=== PATIENT | female | born 1995 | race Caucasian/White ===

== ENCOUNTER → 2018-07-23 13:49 | Day surgery (SDC) | payer OTHER ==
[~2018-07-23 13:49] MED LIST: Acetaminophen TAB* 325 MG PO PRN; Buffered Lidocaine 0.9% SYRIN* 5 ML/SYR SYRINGE INTRADERM ONE; Bupivacaine 0.25% SDV PF* 10 ML VIAL INJ ONE; Dexamethasone IV* 4 MG/ML 1 ML (4 MG) ONE; DiMENhydriNATE IV* 50 MG/ML VIAL IV PUSH PRN; Ketorolac INJ* 30 MG/ML 1 ML VIAL ONE; Lidocaine 1% INJ* 10 MG/ML 30 ML SDV ONE; Lidocaine 2% PF * 5 ML VIAL ONE; Metoclopramide IV* 5 MG/ML 2 ML VIAL ONE; Midazolam* 1 MG/ML 2 ML VIAL (2 MG) ONE; Naloxone* 0.4 MG/ML 1 ML VIAL IV PRN; Ondansetron INJ* 2 MG/ML VIAL ONE; Propofol* 10 MG/ML 20 ML BTL ONE; ceFAZolin 2 GM PREMIX in ORs 2 GM/50 ML BAG IVPB ONE; fentaNYL* 50 MCG/ML 2 ML VIAL (100 MCG VIAL) IV PRN; fentaNYL* 50 MCG/ML 2 ML VIAL (100 MCG VIAL) ONE; oxyCODONE/Acetamin 5/325 MG* TAB ONE; oxyCODONE/Acetamin 5/325 MG* TAB PO PRN
[2018-07-23 17:33] VITALS: BP 131/80
--- NOTE | 2018-07-24 11:04 | OP ---
DATE OF OPERATION: 07/23/18 - SDS DATE OF : [birth year] SURGEON: Benitez Loya MD. WORKERS COMPENSATION CLAIMS ADJUSTER: JENNIE Salvador. An medical clerical assistant was needed for the procedure to aid in positioning of the hand and reduction and instrumentation. ANESTHESIOLOGIST: Dr. Bates. ANESTHESIA: General. PRE-OP DIAGNOSIS: Left ring finger proximal phalanx displaced shaft fracture. POST-OP DIAGNOSIS: Left ring finger proximal phalanx displaced shaft fracture. OPERATIVE PROCEDURE: Open reduction internal fixation left ring finger proximal phalanx fracture. INDICATIONS: Yanet had a very displaced fracture. We talked about risks and benefits. She wanted to proceed with surgery. ESTIMATED BLOOD LOSS: 2 mL. COMPLICATIONS: None. FINDINGS: See above and below. DESCRIPTION OF PROCEDURE: Yanet was seen in the preoperative holding area. The correct side, site of the procedure were identified. We came back to the operating room. The arm was prepped and draped in the usual fashion. A time- out was performed. The arm was exsanguinated and and the tourniquet was inflated to 250 mmHg. I placed a 0.25% Marcaine about the operative area. The curvilinear incision was made over the dorsum of the finger curving ulnarly. Full-thickness flap was raised off the paratenon. The skin flap was sewn back. The central slip was split down its midline. The periosteal layer was split and full thickness flaps were raised to expose the bone. The fracture hematoma was debrided. The fracture was reduced with two-point reduction clamps, two 1.5 mm countersunk Synthes variable angle 1.5 mm lag screws were placed. I then took a little Y plate off the 1.2 mm plate set. One of the holes was clipped off. I then placed the plate into place and secured it with one 1.3 mm screw in the oblong hole. Mini C-arm fluoroscopy confirmed the plate position. I then placed a couple of more screws proximally and a couple of more screws distally. Final fluoroscopy showed excellent reduction, screw length and plate placement. The wound was irrigated out, the periosteal layer was closed with 5-0 Prolene suture. The tendon was closed with 4-0 Prolene suture. The skin was closed with 4-0 nylon suture. The wound was dressed and an ulnar gutter splint was applied. Tourniquet was deflated and she was taken to the recovery room in stable condition. [id number]/[facility] #: [id number] [place]
== END | disposition home or self-care (01) ==
LOC: OR 13:49
PROVIDERS: ATTEND Orthopaedic Surgery Hand Surgery
DX: S62.615A Displaced fracture of proximal phalanx of left ring finger, initial encounter for closed fracture (principal); W19.XXXA Unspecified fall, initial encounter; Y92.9 Unspecified place or not applicable
CPT/HCPCS: 76001; 81025; A9270-GY; C1713; C1776; J0690; J1100; J1885; J2250; J2405; J2704; J2765; J3010; J3490

== ENCOUNTER 2019-04-11 08:20 | Day surgery (SDC) | payer OTHER ==
[~2019-04-11 08:20] MED LIST changes: -Acetaminophen TAB* 325 MG PO PRN; -Buffered Lidocaine 0.9% SYRIN* 5 ML/SYR SYRINGE INTRADERM ONE; +Buffered Lidocaine 1% SYRIN* 1 ML/SYRINGE INTRADERM ONE; -Bupivacaine 0.25% SDV PF* 10 ML VIAL INJ ONE; +Dexamethasone IV* 4 MG/ML 1 ML (4 MG) IV SLOW PU ONE; -Dexamethasone IV* 4 MG/ML 1 ML (4 MG) ONE; -DiMENhydriNATE IV* 50 MG/ML VIAL IV PUSH PRN; +Famotidine IV* 10 MG/ML 2 ML (20 mg) IV ONE; +HYDROcodone/ACETAMIN 5-325 MG* 1 TAB PO PRN; +Ketorolac INJ* 30 MG/ML 1 ML VIAL IV PRN; -Ketorolac INJ* 30 MG/ML 1 ML VIAL ONE; +Lactated Ringers 1000 ML Bag* 1,000 ML IV SCH; -Lidocaine 1% INJ* 10 MG/ML 30 ML SDV ONE; -Lidocaine 2% PF * 5 ML VIAL ONE; -Metoclopramide IV* 5 MG/ML 2 ML VIAL ONE; -Midazolam* 1 MG/ML 2 ML VIAL (2 MG) ONE; -Ondansetron INJ* 2 MG/ML VIAL ONE; +PROCHLORPERAZINE INJ 5 MG/ML 2 ML VIAL IV PRN; -Propofol* 10 MG/ML 20 ML BTL ONE; -ceFAZolin 2 GM PREMIX in ORs 2 GM/50 ML BAG IVPB ONE; -fentaNYL* 50 MCG/ML 2 ML VIAL (100 MCG VIAL) ONE; -oxyCODONE/Acetamin 5/325 MG* TAB ONE
[2019-04-11] MEDS ORDERED: Dexamethasone IV* 4 MG/ML 1 ML (4 MG) ONE (08:32)
[2019-04-11] MEDS ORDERED: Famotidine IV* 10 MG/ML 2 ML (20 mg) ONE (08:32)
[2019-04-11] MEDS ORDERED: fentaNYL* 50 MCG/ML 2 ML VIAL (100 MCG VIAL) ONE (09:40)
[2019-04-11] MEDS ORDERED: Propofol* 10 MG/ML 20 ML BTL ONE (09:41)
[2019-04-11] MEDS ORDERED: Lidocaine 2% PF * 5 ML VIAL ONE (09:41)
[2019-04-11] MEDS ORDERED: ceFAZolin 2 GM in NS PREMIX(*) 2 GM/100 ML BAG IVPB ONE (10:08)
[2019-04-11] MEDS ORDERED: EPHEDrine (Pressors)* 50 MG/ML VIAL ONE (10:12)
[2019-04-11] MEDS ORDERED: Bupivacaine 0.25% SDV* 30 ML ONE (10:24)
[2019-04-11] MEDS ORDERED: Phenylephrine 40 MCG/ML SYRINGE ONE (10:27)
[2019-04-11] MEDS ORDERED: Ondansetron INJ* 2 MG/ML VIAL ONE (10:36)
[2019-04-11 11:31] VITALS: BP 119/62
--- NOTE | 2019-04-11 13:34 | OP ---
DATE OF OPERATION: 04/11/19 - [facility] DATE OF : [birth year] SURGEON: Benitez Loya MD CLOTHES DESIGNER: JENNIE Salvador ANESTHESIOLOGIST: Dr. Hackett. ANESTHESIA: General. PRE-OP DIAGNOSES: 1. Left dorsal ring finger soft tissue mass. 2. Symptomatic hardware, left ring finger, status post open reduction internal fixation of the proximal phalanx some time ago. POST-OP DIAGNOSES: 1. Left dorsal ring finger soft tissue mass. 2. Symptomatic hardware, left ring finger, status post open reduction internal fixation of the proximal phalanx some time ago. OPERATIVE PROCEDURE: 1. Excision of left dorsal ring finger soft tissue mass. 2. Removal of plain screws, left ring finger proximal phalanx. INDICATIONS: Yanet had the surgery. The bone had healed very nicely. She had excellent motion. She developed a bump over the dorsum of the finger right underneath the incision, symptomatic. We talked about excising that and removing the hardware. She wanted to proceed. ESTIMATED BLOOD LOSS: 2 mL. COMPLICATIONS: None. FINDINGS: See above and below. DESCRIPTION OF PROCEDURE: Yanet was seen in the preoperative holding area. The correct side, site, and procedure were identified. We came back to the operating room where the arm was prepped and draped in the usual fashion. A time-out was performed. The arm was exsanguinated with the Esmarch and the tourniquet was inflated to 225 mmHg. I reopened her prior curvilinear incision over the dorsum of the finger. Dissection was carried down. Full thickness skin and subcutaneous tissue flaps were raised off the extensor tendon at the proximal aspect where I had closed the split in the extensor tendon before. There was a large fibrotic nodule. It looked like it was all around one of the Prolene suture knots. I went ahead and excised fibrotic nodule from off the tendon and handed off as specimen. A portion of the suture came out with it. At this point, I reopened the split in my tendon. All of the Prolene suture was removed. The hardware was visualized. It was removed in a standard fashion. There was a plate and then two lag screws, everything was removed. It all came out uneventfully. The edges were smoothed off with a rongeur. Wound was copiously irrigated out. The tendon split was repaired with 4-0 Prolene suture, being very careful to bury all of the knots. This was augmented with a couple of 5-0 [id number] sutures. The wound was irrigated out. Skin was closed with 4-0 nylon suture and she was placed in a soft dressing and taken to the recovery room in stable condition. A 0.25% Marcaine was infiltrated as well. [id number]/[facility] #: [id number] [facility]
== END 2019-04-11 12:08 | disposition home or self-care (01) ==
LOC: OREAST 08:20
PROVIDERS: ATTEND Orthopaedic Surgery Hand Surgery
DX: T84.84XA Pain due to internal orthopedic prosthetic devices, implants and grafts, initial encounter (principal); S62.615D Displaced fracture of proximal phalanx of left ring finger, subsequent encounter for fracture with routine healing; R22.32 Localized swelling, mass and lump, left upper limb; X58.XXXD Exposure to other specified factors, subsequent encounter; Y92.9 Unspecified place or not applicable
CPT/HCPCS: 76000; 81025; 88300; 88304; J0690; J1100; J2405; J2704; J3010; J3490